=== PATIENT | female | born 1985 | race American Indian/Alaskan Native ===

== ENCOUNTER 2020-08-28 23:11 | Emergency (ER) | payer OTHER ==
[2020-08-28 23:35] VITALS: BP 124/65
[2020-08-29] MEDS ORDERED: ACETAMINOPHEN 500 MG TAB ONE (00:25)
[2020-08-29 00:27] LABS: Hematocrit 31.3 % (30.3-42.9)
[2020-08-29] MEDS ORDERED: ACETAMINOPHEN 500 MG TAB PO ONE (00:27)
[2020-08-29 00:34] LABS: Basophils % (Auto) 0.3 % (0.0-1.8); Eosinophils # (Auto) 0.2 K/mm3 (0.0-0.4); Eosinophils % (Auto) 1.5 % (0.0-4.3); Hemoglobin 10.2 gm/dl (10.1-14.3); Lymphocytes # (Auto) 3.1 K/mm3 (1.2-5.4); Lymphocytes % (Auto) 29.6 % (13.4-35.0); Mean Corpuscular HGB Conc 33 % (30-34); Mean Corpuscular Volume 82 fl (79-97); Monocytes # (Auto) 0.9 K/mm3 (0.0-0.8); Monocytes % (Auto) 8.3 % (0.0-7.3); Platelet Count 350 K/mm3 (140-440); Red Blood Count 3.84 M/mm3 (3.65-5.03); Red Cell Distribution Width 16.3 % (13.2-15.2)
[2020-08-29 00:48] LABS: Alanine Aminotransferase 14 units/L (7-56); Albumin 3.6 g/dL (3.9-5); Blood Urea Nitrogen 16 mg/dL (7-17); Calcium 8.9 mg/dL (8.4-10.2); Hemolysis Index 0
[2020-08-29 00:51] LABS: BUN/Creatinine Ratio 27
--- NOTE | 2020-08-29 01:20 | Emergency Department Report ---
ED Abdominal Pain HPI - General Chief Complaint: Abdominal Pain Stated Complaint: ABD PAIN Time Seen by Provider: 08/29/20 01:05 Source: patient Mode of arrival: Ambulatory Limitations: No Limitations - History of Present Illness MD Complaint: abdominal pain -: Gradual Location: RLQ Radiation: none Migration to: no migration Severity: moderate Severity scale (0 -10): 4 Quality: sharp Consistency: constant Improves With: nothing Worsens With: nothing Associated Symptoms: denies other symptoms. denies: nausea, vomiting, constipation, dysuria, hematuria, anorexia - Related Data Previous Rx's Medication Instructions Recorded Last Taken Type Ketorolac [Toradol] 10 mg PO Q6H PRN #14 tablet 08/29/20 Unknown Rx Allergies Allergy/AdvReac Type Severity Reaction Status Date / Time peanut Allergy Hives Verified 08/28/20 23:15 ED Review of Systems ROS: Stated complaint: ABD PAIN Other details as noted in HPI Comment: All other systems reviewed and negative ED Past Medical Hx - Past Medical History Hx Asthma: Yes Additional medical history: anemia, e - Social History Smoking Status: Never Smoker Substance Use Type: Alcohol - Medications Home Medications: Home Medications Medication Instructions Recorded Confirmed Last Taken Type Ketorolac [Toradol] 10 mg PO Q6H PRN #14 tablet 08/29/20 Unknown Rx ED Physical Exam - General Limitations: No Limitations General appearance: alert, in no apparent distress - Head Head exam: Present: atraumatic, normocephalic - Eye Eye exam: Present: normal appearance - ENT ENT exam: Present: mucous membranes moist - Neck Neck exam: Present: normal inspection - Respiratory Respiratory exam: Present: normal lung sounds bilaterally. Absent: respiratory distress - Cardiovascular Cardiovascular Exam: Present: regular rate, normal rhythm. Absent: systolic murmur, diastolic murmur, rubs, gallop - GI/Abdominal GI/Abdominal exam: Present: soft, tenderness (Right lower quadrant pain), normal bowel sounds. Absent: rebound, hyperactive bowel sounds, organomegaly, mass, bruit, pulsatile mass - Extremities Exam Extremities exam: Present: normal inspection - Back Exam Back exam: Present: normal inspection - Neurological Exam Neurological exam: Present: alert, oriented X3 - Psychiatric Psychiatric exam: Present: normal affect, normal mood - Skin Skin exam: Present: warm, dry, intact, normal color. Absent: rash ED Course Vital Signs 08/28/20 23:19 Temperature 98.8 F Pulse Rate 96 H Respiratory 18 Rate Blood Pressure 124/65 O2 Sat by Pulse 96 Oximetry ED Medical Decision Making - Lab Data Result diagrams: 08/28/20 23:41 08/28/20 23:41 - Radiology Data Radiology results: report reviewed [facility] [address] [place] [address] Cat Scan Report Signed Patient: ZEHRA SANTORO#: [id number] : 1985 Acct:[id number] Age/Sex: 35 / F ADM Date: 08/28/20 Loc: ED Attending Dr: Ordering Physician: ZULEIMA TEIXEIRA Date of Service: 08/29/20 Procedure(s): CT abdomen pelvis w con Accession Number(s): [id number] cc: ZULEIMA TEIXEIRA CT ABDOMEN AND PELVIS WITH CONTRAST HISTORY: Right lower quadrant abdominal pain COMPARISON: None TECHNIQUE: Routine abdominal and pelvic CT exam performed following intravenous contrast administration. Patient received 100 mL IV Omnipaque 300. All CT scans at this location are performed using CT dose reduction for [facility] by means of automated exposure control. FINDINGS: CT ABDOMEN: Lung Bases: No significant abnormality. Liver: No significant abnormality. Biliary: No significant abnormality. Spleen: No significant abnormality. Unenlarged. Pancreas: No significant abnormality. Adrenals: No significant abnormality. Kidneys: No significant abnormality. Lymphatics: No lymphadenopathy. Vasculature: No significant abnormality. Bowel/Peritoneum: No significant abnormality. No free air. No free fluid. Normal appendix. CT PELVIC: : There is a small amount free fluid in the pelvis with a 3 cm right ovarian cyst. Lymphatics: No lymphadenopathy. Osseous Structures: No aggressive appearing osseous lesions. Additional Findings: None IMPRESSION: 1. No acute findings. 2. Small amount of free fluid in pelvis with a 3 cm right ovarian cyst. Signer Name: Rudy Mensah MD Signed: 08/29/2020 3:21 AM Workstation Name: [id number] Transcribed By: ELSA Dictated By: Rudy Mensah MD Electronically Authenticated By: Rudy Mensah MD Signed Date/Time: 08/29/20320 DD/ 9 TD/TT: Critical care attestation.: If time is entered above; I have spent that time in minutes in the direct care of this critically ill patient, excluding procedure time. ED Disposition Clinical Impression: Ovarian cyst Disposition: DC- TO HOME OR SELFCARE Condition: Stable Instructions: Ovarian Cystectomy, Care After, Ovarian Cyst, [id number], Abdominal Pain (ED) Prescriptions: Ketorolac [Toradol] 10 mg PO Q6H PRN #14 tablet PRN Reason: Pain Referrals: [facility] [Provider Group] - 3-5 Days [facility] [Provider Group] - 3-5 Days [facility], [Primary Care Provider] - 3-5 Days
[2020-08-29 02:05] LABS: Bacteria,Urine 3+ /HPF (Negative); Bilirubin,Urine NEG (Negative); Blood,Urine NEG (Negative); Color,Urine Yellow (Yellow); Hyaline Casts,Urine 1 /LPF; Mucus,Urine 1+ /HPF; Protein,Urine <15 mg/dL mg/dL (Negative); Urobilinogen,Urine < 2.0 mg/dL (<2.0)
[2020-08-29] MEDS ORDERED: ONDANSETRON 4 MG/2 ML INJ ONE (02:45)
[2020-08-29] MEDS ORDERED: MORPHINE 4 MG/1 ML INJ ONE (02:45)
[2020-08-29] MEDS ORDERED: ONDANSETRON 4 MG/2 ML INJ IV ONE (02:46)
[2020-08-29] MEDS ORDERED: MORPHINE 4 MG/1 ML INJ IV ONE (02:46)
--- NOTE | 2020-08-29 03:22 | Cat Scan Report ---
CT ABDOMEN AND PELVIS WITH CONTRAST HISTORY: Right lower quadrant abdominal pain COMPARISON: None TECHNIQUE: Routine abdominal and pelvic CT exam performed following intravenous contrast administrat ion. Patient received 100 mL IV Omnipaque 300. All CT scans at this location are performed using CT d ose reduction for [facility] by means of automated exposure control. FINDINGS: CT ABDOMEN: Lung Bases: No significant abnormality. Liver: No significant abnormality. Biliary: No significant abnormality. Spleen: No significant abnormality. Unenlarged. Pancreas: No significant abnormality. Adrenals: No significant abnormality. Kidneys: No significant abnormality. Lymphatics: No lymphadenopathy. Vasculature: No significant abnormality. Bowel/Peritoneum: No significant abnormality. No free air. No free fluid. Normal appendix. CT PELVIC: : There is a small amount free fluid in the pelvis with a 3 cm right ovarian cyst. Lymphatics: No lymphadenopathy. Osseous Structures: No aggressive appearing osseous lesions. Additional Findings: None IMPRESSION: 1. No acute findings. 2. Small amount of free fluid in pelvis with a 3 cm right ovarian cyst. Signer Name: Rudy Mensah MD Signed: 08/29/2020 3:21 AM Workstation Name: [id number]
[2020-08-29] MEDS ORDERED: KETOROLAC 30 MG/1 ML INJ ONE (04:28)
[2020-08-29] MEDS ORDERED: KETOROLAC 30 MG/1 ML INJ IV ONE (04:29)
== END 2020-08-29 04:35 | disposition home or self-care (01) ==
LOC: ED 23:11
DX: N83.201 Unspecified ovarian cyst, right side (principal); J45.909 Unspecified asthma, uncomplicated; Z79.899 Other long term (current) drug therapy; Z91.010 Allergy to peanuts
CPT/HCPCS: 36415; 74177; 80053; 81001; 83690; 85025; 96374; 96375; 99284; J1885; J2270; J2405; Q9967